=== PATIENT | male | born 1995 | race Caucasian/White ===

== ENCOUNTER 2022-06-05 12:20 | Emergency (ER) | payer SELFPAY ==
[~2022-06-05] VITALS: Ht 182 cm; Wt 70.0 kg
--- NOTE | 2022-06-05 12:40 | ED Chest Pain ---
General Chief Complaint: Chest Pain Stated Complaint: CP Source: patient Exam Limitations: no limitations History of Present Illness Date Seen by Provider: Jun 05, 2022 Time Seen by Provider: 12:20 Initial Comments Patient to the ER by EMS from [facility] urgent care with chief complaint of chest wall pain for the past 2 days without history of heart disease. He says been working out in the heat recently and his son was also diagnosed with a nonspecific viral syndrome a few days before. He had a negative COVID for his son. He has been up working on the roof and other hot environments. He took naproxen prior to coming in but it did not help his symptoms he has not had a fever or chills. He has nausea and a headache but no vomiting. He has had some loose stools. No blood in the stool or emesis. No cough or shortness of air. Smokes marijuana infrequently. Does not use tobacco products. No significant familial coronary disease history. Allergies and Home Medications Allergies Coded Allergies: No Known Drug Allergies (Unverified , 06/05/22) Patient Home Medication List Home Medication List Reviewed: Yes Ibuprofen (Ibuprofen) 800 Mg Tablet, 800 MG PO Q8H PRN for PAIN Prescribed by: DIYA DHALIWAL on 06/05/22 1415 Ondansetron (Ondansetron Odt) 4 Mg Tab.rapdis, 4 MG PO Q6H PRN for NAUSEA/VOMITING Prescribed by: DIYA DHALIWAL on 06/05/22 1415 Review of Systems Review of Systems Constitutional: No chills, No diaphoresis EENTM: No Blurred Vision Respiratory: Denies Cough Cardiovascular: See HPI, Chest Pain; Denies Edema Gastrointestinal: Denies Abdomen Distended, Denies Abdominal Pain; Nausea, Poor Fluid Intake; Denies Vomiting Genitourinary: Denies Burning, Denies Discharge, Denies Drainage, Denies Frequency Musculoskeletal: No back pain, No joint pain All Other Systems Reviewed Negative Unless Noted: Yes Past Xqdupeo-Tvirtj-Erosne Hx Patient Social History Tobacco Use?: No Substance use?: Yes Substance type: Marijuana Alcohol Use?: No Physical Exam Vital Signs Vital Signs - First Documented 06/05/22 12:21 Temp 36.6 Pulse 66 Resp 17 B/P (MAP) 123/91 (102) Pulse Ox 99 Capillary Refill : Height, Weight, BMI Height: '" Weight: lbs. oz. kg; BMI Method: General Appearance: WD/WN, Mild Distress HEENT: PERRL/EOMI, Pharynx Normal, Moist Mucous Membranes Neck: Full Range of Motion, Normal Inspection Respiratory: No Chest Non Tender; Lungs Clear, Normal Breath Sounds, No Accessory Muscle Use, No Respiratory Distress Cardiovascular: Regular Rate, Rhythm, No Edema, Normal Peripheral Pulses Gastrointestinal: Normal Bowel Sounds, Non Tender, Soft Extremity: Normal Capillary Refill, Normal Inspection, No Pedal Edema Neurologic/Psychiatric: Alert, Oriented x3 Progress/Results/Core Measures Results/Orders Lab Results Laboratory Tests Test 06/05/22 12:29 Range/Units White Blood Count 6.0 4.3-11.0 10^3/uL Red Blood Count 4.93 4.30-5.52 10^6/uL Hemoglobin 15.6 13.3-17.7 g/dL Hematocrit 43 40-54 % Mean Corpuscular Volume 88 80-99 fL Mean Corpuscular Hemoglobin 32 25-34 pg Mean Corpuscular Hemoglobin Concent 36 32-36 g/dL Red Cell Distribution Width 12.0 10.0-14.5 % Platelet Count 238 130-400 10^3/uL Mean Platelet Volume 10.5 9.0-12.2 fL Immature Granulocyte % (Auto) 0 % Neutrophils (%) (Auto) 71 42-75 % Lymphocytes (%) (Auto) 21 12-44 % Monocytes (%) (Auto) 7 0-12 % Eosinophils (%) (Auto) 1 0-10 % Basophils (%) (Auto) 1 0-10 % Neutrophils # (Auto) 4.3 1.8-7.8 10^3/uL Lymphocytes # (Auto) 1.2 1.0-4.0 10^3/uL Monocytes # (Auto) 0.4 0.0-1.0 10^3/uL Eosinophils # (Auto) 0.1 0.0-0.3 10^3/uL Basophils # (Auto) 0.0 0.0-0.1 10^3/uL Immature Granulocyte # (Auto) 0.0 0.0-0.1 10^3/uL Sodium Level 142 135-145 MMOL/L Potassium Level 3.8 3.6-5.0 MMOL/L Chloride Level 104 98-107 MMOL/L Carbon Dioxide Level 23 21-32 MMOL/L Anion Gap 15 H 5-14 MMOL/L Blood Urea Nitrogen 13 7-18 MG/DL Creatinine 0.91 0.60-1.30 MG/DL Estimat Glomerular Filtration Rate 121 BUN/Creatinine Ratio 14 Glucose Level 93 70-105 MG/DL Calcium Level 9.2 8.5-10.1 MG/DL Corrected Calcium 8.5-10.1 MG/DL Total Bilirubin 1.2 H 0.1-1.0 MG/DL Aspartate Amino Transf (AST/SGOT) 27 5-34 U/L Alanine Aminotransferase (ALT/SGPT) 16 0-55 U/L Alkaline Phosphatase 85 40-136 U/L Total Creatine Kinase 361 H 30-200 U/L Troponin I < 0.028 <0.028 NG/ML C-Reactive Protein High Sensitivity 0.21 0.00-0.50 MG/DL Total Protein 7.0 6.4-8.2 GM/DL Albumin 4.6 H 3.2-4.5 GM/DL SARS-CoV-2 RNA (RT-PCR) Not Detected Not Detecte My Orders Orders - DIYA DHALIWAL Covid 19 Inhouse Test (06/05/22 12:36) Cbc With Automated Diff (06/05/22 12:36) Comprehensive Metabolic Panel (06/05/22 12:36) Hs C Reactive Protein (06/05/22 12:36) Chest 1 View, Ap/Pa Only (06/05/22 12:36) Troponin I [place] (06/05/22 12:36) Continuous Ekg Monitoring (06/05/22 12:36) Ekg Tracing (06/05/22 12:36) Creatine Kinase (06/05/22 12:36) Ed Iv/Invasive Line Start (06/05/22 12:36) Lactated Ringers (Lr 1000 Ml Iv Solution (06/05/22 12:45) Ondansetron Injection (Zofran Injectio (06/05/22 12:45) Ketorolac Injection (Toradol Injection) (06/05/22 12:45) Promethazine Injection (Phenergan Injec (06/05/22 14:15) Medications Given in ED Current Medications Medications Dose Ordered Sig/Mihir Route Start Time Stop Time Status Last Admin Dose Admin Ketorolac Tromethamine 30 mg ONCE ONCE IVP 06/05/22 12:45 06/05/22 12:46 DC 06/05/22 13:01 30 MG Lactated Ringer's 1,000 ml @ 0 mls/hr Q0M ONCE IV 06/05/22 12:45 06/05/22 12:46 DC 06/05/22 13:01 1,000 MLS/HR Ondansetron HCl 8 mg ONCE ONCE IVP 06/05/22 12:45 06/05/22 12:46 DC 06/05/22 13:01 8 MG Vital Signs/I&O 06/05/22 12:21 Temp 36.6 Pulse 66 Resp 17 B/P (MAP) 123/91 (102) Pulse Ox 99 Progress Progress Note #1: Time: 12:39 Progress Note Bag of fluids, Toradol, Zofran, EKG, chest x-ray and basic labs looking for pneumonias, myocarditis/pericarditis, dehydration/rhabdomyolysis, other. Progress Note #2: Time: 14:12 Progress Note The patient is significantly better after 1500 cc of fluids. He has very mild rhabdomyolysis likely indicative of heat exhaustion. We will put him out on ibuprofen, Tylenol and lots of fluids and go back to work on Thursday if he is feeling better Initial ECG Impression Date: Jun 05, 2022 Initial ECG Impression Time: 12:31 Initial ECG Rate: 63 Initial ECG Rhythm: Normal Sinus Initial ECG Intervals: Normal Initial ECG Impression: Normal Comment Normal sinus rhythm without clinically relevant ST elevation or depression. Early repolarization phenomenon noted. Diagnostic Imaging Diagonstic Imaging: Xray Plain Films/CT/US/NM/MRI: chest Comments NAME: NICOL RICARDO [facility] REC#: [id number] PT STATUS: REG ER : 1995 PHYSICIAN: DIYA DHALIWAL MD ADMIT DATE: 06/05/22/ER Draft Date of Exam:06/05/22 CHEST 1 VIEW, AP/PA ONLY INDICATION: Chest pain. EXAMINATION: Portable chest at 01:55 p.m. FINDINGS: Heart size and pulmonary vascularity are normal. Lungs are clear. There are no effusions or pneumothoraces. IMPRESSION: No acute abnormalities in the chest. Dictated on workstation # [id number] Dict: 06/05/22 1359 Trans: 06/05/22 1403 [id number] [id number] Interpreted by: MAN ENGLE MD Electronically signed by: Reviewed: Reviewed by Me Departure Impression Primary Impression: Rhabdomyolysis Qualified Codes: M62.82 - Rhabdomyolysis Additional Impression: Heat exhaustion Qualified Codes: T67.5XXA - Heat exhaustion, unspecified, initial encounter Disposition: HOME, SELF-CARE Condition: Stable Departure-Patient Inst. Decision time for Depature: 14:13 Referrals: NO,LOCAL PHYSICIAN (PCP/Family) Primary Care Physician Patient Instructions: Heat Illness ED, Rhabdomyolysis (DC) Add. Discharge Instructions: You need to stay out of the heat and drink plenty of fluids until Thursday. Eat some protein. Tylenol 1000 mg every 8 hours as needed for pain keeping her from being functional. Ibuprofen 800 mg or 8 hours needed for pain keeping her from being functional. Ondansetron 1 tablet under the tongue every 6 hours as needed for nausea or vomiting. Return to the ER for significant worsening symptoms. All discharge instructions reviewed with patient and/or family. Voiced understanding. Scripts Ibuprofen (Ibuprofen) 800 Mg Tablet 800 MG PO Q8H PRN for PAIN, #20 TAB 0 Refills Prov: DIYA DHALIWAL 06/05/22 Ondansetron (Ondansetron Odt) 4 Mg Tab.rapdis 4 MG PO Q6H PRN for NAUSEA/VOMITING, #8 TAB 0 Refills Prov: DIYA DHALIWAL 06/05/22 Work/School Note: Work Release Form Date Seen in the Emergency Department: Jun 05, 2022 Return to Work: Jun 09, 2022 Restrictions: No Restrictions DIYA DHALIWAL Jun 05, 2022 12:40
[2022-06-05] MEDS ORDERED: ONDANSETRON 4 MG/2 ML (SDV) Z0FRAN IVP ONE (12:45)
[2022-06-05] MEDS ORDERED: KETOROLAC 30 MG/ML VIAL IVP ONE (12:45)
[2022-06-05] MEDS ORDERED: LACTATED RINGERS 1,000 ML IV ONE (12:45)
[2022-06-05 12:48] LABS: BASOPHILS % (AUTO) 1 % (0-10); EOSINOPHILS # (AUTO) 0.1 10^3/uL (0.0-0.3); EOSINOPHILS % (AUTO) 1 % (0-10); HEMATOCRIT 43 % (40-54); HEMOGLOBIN 15.6 g/dL (13.3-17.7); LYMPHOCYTES # (AUTO) 1.2 10^3/uL (1.0-4.0); LYMPHOCYTES % (AUTO) 21 % (12-44); MEAN CORPUSCULAR HEMOGLOBIN 32 pg (25-34); MEAN CORPUSCULAR HGB CONC 36 g/dL (32-36); MEAN CORPUSCULAR VOLUME 88 fL (80-99); MEAN PLATELET VOLUME 10.5 fL (9.0-12.2); MONOCYTES # (AUTO) 0.4 10^3/uL (0.0-1.0); MONOCYTES % (AUTO) 7 % (0-12); NEUTROPHILS # (AUTO) 4.3 10^3/uL (1.8-7.8); NEUTROPHILS % (AUTO) 71 % (42-75); PLATELET COUNT 238 10^3/uL (130-400)
[2022-06-05 13:04] LABS: ALBUMIN 4.6 GM/DL (3.2-4.5); CHLORIDE 104 MMOL/L (98-107); POTASSIUM 3.8 MMOL/L (3.6-5.0); SODIUM 142 MMOL/L (135-145)
[2022-06-05 13:05] LABS: CALCIUM 9.2 MG/DL (8.5-10.1)
[2022-06-05 13:06] LABS: GLUCOSE 93 MG/DL (70-105)
[2022-06-05 13:07] LABS: CARBON DIOXIDE 23 MMOL/L (21-32)
[2022-06-05 13:08] LABS: BILIRUBIN,TOTAL 1.2 MG/DL (0.1-1.0)
[2022-06-05 13:10] LABS: ALKALINE PHOSPHATASE 85 U/L (40-136); CREATININE SERUM 0.91 MG/DL (0.60-1.30); GFR ESTIMATED 121
[2022-06-05 13:11] LABS: BUN/CREATININE RATIO 14
[2022-06-05 13:13] LABS: ALANINE AMINOTRANSFERASE 16 U/L (0-55); CREATINE KINASE 361 U/L (30-200)
--- NOTE | 2022-06-05 14:03 | Diagnostic Imaging Report ---
INDICATION: Chest pain. EXAMINATION: Portable chest at 01:55 p.m. FINDINGS: Heart size and pulmonary vascularity are normal. Lungs are clear. There are no effusions or pneumothoraces. IMPRESSION: No acute abnormalities in the chest. Dictated by: Dictated on workstation # [id number]
[2022-06-05] MEDS ORDERED: ONDA4TAB11 PO (14:15)
[2022-06-05] MEDS ORDERED: IBUP-1780 PO (14:15)
[2022-06-05] MEDS ORDERED: PROMETHAZINE INJ 25 MG/ML (PHENERGAN) AMP IVP ONE (14:15)
[2022-06-05 14:38] VITALS: BP 121/77
== END 2022-06-05 14:38 | disposition home or self-care (01) ==
LOC: ER 12:20
DX: T67.5XXA Heat exhaustion, unspecified, initial encounter (principal); M62.82 Rhabdomyolysis; Z20.822 Contact with and (suspected) exposure to COVID-19; Z28.310 Unvaccinated for COVID-19; X30.XXXA Exposure to excessive natural heat, initial encounter
CPT/HCPCS: 36415; 71045; 80053; 82550; 84484; 85025; 86141; 87636